=== PATIENT | male | born 1940 | race African-American/Black ===

== ENCOUNTER 2019-10-11 20:03 | Emergency (ER) | payer BC, OTHER ==
[~2019-10-11] VITALS: Ht 182.9 cm; Wt 86.2 kg
[~2019-10-11 20:03] MED LIST: AMLODIPINE BESYL5 MG ORAL; ASPIR-LOW81 MG ORAL; ASPIRIN-LOW81 MG ORAL; MAGNESIUM250 M2 PO; MECLIZINE HCL25 MG ORAL; NORVASC5 MG ORAL
[2019-10-11 20:45] VITALS: BP 168/98
--- NOTE | 2019-10-11 20:45 | NUR ---
ED Nurse Note: Patient walked in to ED c/o SOB and congestion x1 day. Noted with bilateral wheezes. No fever. Afebrile. VSS.
--- NOTE | 2019-10-11 21:11 | NUR ---
ED Nurse Note: Xray at bedside.
[2019-10-11] MEDS: Ipratropium 0.02% Inh Soln 2.5ml UD HHN SCH ×3 (21:30→21:38)
[2019-10-11] MEDS: Albuterol ud Inhalation HHN SCH ×3 (21:30→21:38)
--- NOTE | 2019-10-11 21:31 | NUR ---
ED Nurse Note: RT at bedside for breating tx.
[2019-10-11 21:35] LABS: BASOPHILS % (AUTO) 1.4 % (0.0-2.0); EOSINOPHILS % (AUTO) 7.3 % (0.0-3.0); HEMATOCRIT 42.6 % (42.0-52.0); HEMOGLOBIN 13.9 G/DL (14.2-18.0); LYMPHOCYTES % (AUTO) 31.7 % (20.0-45.0); MEAN CORPUSCULAR VOLUME 97 FL (80-99); MONOCYTES % (AUTO) 11.5 % (1.0-10.0); NEUTROPHILS % (AUTO) 48.2 % (45.0-75.0); PLATELET COUNT 104 K/UL (150-450); RED CELL DISTRIBUTION WIDTH 10.3 % (11.6-14.8); WHITE BLOOD COUNT 5.8 K/UL (4.8-10.8)
[2019-10-11 21:47] LABS: ANION GAP 6 mmol/L (5-15); BLOOD UREA NITROGEN 13 mg/dL (7-18); CALCIUM 8.2 MG/DL (8.5-10.1); CARBON DIOXIDE 30 MMOL/L (21-32); CHLORIDE 109 MMOL/L (98-107); CREATININE 1.4 MG/DL (0.55-1.30); POTASSIUM 4.3 MMOL/L (3.5-5.1); SODIUM 144 MMOL/L (136-145)
[2019-10-11 21:57] LABS: ALANINE AMINOTRANSFERASE 26 U/L (12-78); ALBUMIN 3.7 G/DL (3.4-5.0); ALBUMIN/GLOBULIN RATIO 0.9 (1.0-2.7); ALKALINE PHOSPHATASE 64 U/L (46-116); ASPARTATE AMINO TRANSFERASE 34 U/L (15-37); BILIRUBIN,TOTAL 0.7 MG/DL (0.2-1.0)
[2019-10-11] MEDS ORDERED: PREDNISONE50 MG ORAL (22:57)
[2019-10-11] MEDS ORDERED: ALBUTEROL SULF8.5 GM INH (22:57)
--- NOTE | 2019-10-11 22:57 | Emergency Room Report ---
History of Present Illness General Chief Complaint: Asthma Source: Patient Present Illness HPI 78-year-old male history of hypertension presents with shortness of breath of the past 5 days, patient versus cough, some congestion, no fevers no chills no chest pain, no known aggravating relieving factors severity is moderate, constant patient states he is not a smoker but he is surrounded by a lot of secondhand smoke his friend like to smoke a lot. Allergies: Coded Allergies: IODINE (Verified Allergy, Unknown, 04/23/11) Patient History Past Medical History: see triage record Reviewed Nursing Documentation: PMH: Agreed; PSxH: Agreed Nursing Documentation-PMH Past Medical History: No History, Except For Hx Cardiac Problems: Yes Hx Hypertension: Yes Hx Cancer: No Hx Gastrointestinal Problems: No Hx Neurological Problems: No Hx Transient Ischemic Attacks: Yes Hx Vertigo: Yes Hx Dizziness: Yes Hx Syncope: Yes Hx Headaches: Yes Hx Weakness: Yes Hx Fatigue: Yes Review of Systems All Other Systems: negative except mentioned in HPI Physical Exam Vital Signs Date Time Temp Pulse Resp B/P (MAP) Pulse Ox O2 Delivery O2 Flow Rate FiO2 10/11/19 20:39 98.2 74 14 168/98 (121) 94 Room Air 10/11/19 21:33 21 Sp02 EP Interpretation: reviewed, normal General Appearance: well appearing, no apparent distress, alert Head: normocephalic, atraumatic Eyes: bilateral eye PERRL, bilateral eye EOMI ENT: uvula midline, moist mucus membranes Neck: supple, thyroid normal, supple/symm/no masses Respiratory: no respiratory distress, no retraction, no accessory muscle use, wheezing - Moderate Cardiovascular #1: normal peripheral pulses, regular rate, rhythm, no edema, no gallop, no murmur Gastrointestinal: non tender, soft, no guarding, no rebound Musculoskeletal: normal inspection Neurologic: alert, oriented x3 Psychiatric: mood/affect normal Skin: no rash, warm/dry Medical Decision Making Diagnostic Impression: Primary Impression: COPD exacerbation ER Course 78-year-old male presents with shortness of breath, concerning for COPD exacerbation versus ACS versus cardiac wheeze Duo nebs, steroids, fluids and a chest x-ray Chest x-ray shows large lung volumes, EKG negative for acute infarct, troponin negative, patient improved significantly with duo nebs and steroids Counseled patient to avoid secondhand smoke Disposition home with return precautions Laboratory Tests Test 10/11/19 21:15 White Blood Count 5.8 K/UL (4.8-10.8) Red Blood Count 4.40 M/UL (4.70-6.10) L Hemoglobin 13.9 G/DL (14.2-18.0) L Hematocrit 42.6 % (42.0-52.0) Mean Corpuscular Volume 97 FL (80-99) Mean Corpuscular Hemoglobin 31.6 PG (27.0-31.0) H Mean Corpuscular Hemoglobin Concent 32.6 G/DL (32.0-36.0) Red Cell Distribution Width 10.3 % (11.6-14.8) L Platelet Count 104 K/UL (150-450) L Mean Platelet Volume 10.7 FL (6.5-10.1) H Neutrophils (%) (Auto) 48.2 % (45.0-75.0) Lymphocytes (%) (Auto) 31.7 % (20.0-45.0) Monocytes (%) (Auto) 11.5 % (1.0-10.0) H Eosinophils (%) (Auto) 7.3 % (0.0-3.0) H Basophils (%) (Auto) 1.4 % (0.0-2.0) Sodium Level 144 MMOL/L (136-145) Potassium Level 4.3 MMOL/L (3.5-5.1) Chloride Level 109 MMOL/L (98-107) H Carbon Dioxide Level 30 MMOL/L (21-32) Anion Gap 6 mmol/L (5-15) Blood Urea Nitrogen 13 mg/dL (7-18) Creatinine 1.4 MG/DL (0.55-1.30) H Estimate Glomerular Filtration Rate mL/min (>60) Glucose Level 105 MG/DL (74-106) Calcium Level 8.2 MG/DL (8.5-10.1) L Total Bilirubin 0.7 MG/DL (0.2-1.0) Aspartate Amino Transferase (AST) 34 U/L (15-37) Alanine Aminotransferase (ALT) 26 U/L (12-78) Alkaline Phosphatase 64 U/L (46-116) Troponin I 0.000 ng/mL (0.000-0.056) Pro-B-Type Natriuretic Peptide 251 pg/mL (0-125) H Total Protein 7.8 G/DL (6.4-8.2) Albumin 3.7 G/DL (3.4-5.0) Globulin 4.1 g/dL Albumin/Globulin Ratio 0.9 (1.0-2.7) L EKG Diagnostic Results EKG Time: 21:43 EP Interpretation: Sinus bradycardia, rate 58, QTc 428, no acute ST elevations , left axis tommie Rhythm Strip Diag. Results Rhythm Strip Time: 22:55 EP Interpretation: yes Rate: 63 Rhythm: NSR, no PVC's, no ectopy Chest X-Ray Diagnostic Results Chest X-Ray Diagnostic Results : Chest X-Ray Ordered: Yes # of Views/Limited/Complete: 1 View Indication: Shortness of Breath EP Interpretation: Yes Interpretation: other - Large lung volumes Impression: Other - Large lung volumes Electronically Signed by: William Ahuja MD Last Vital Signs Date Time Temp Pulse Resp B/P (MAP) Pulse Ox O2 Delivery O2 Flow Rate FiO2 10/11/19 21:38 62 16 100 Room Air 21 65 15 100 10/11/19 20:45 98.2 168/98 Disposition: HOME, SELF-CARE Condition: Stable Scripts Albuterol Sulfate* (ALBUTEROL SULFATE MDI*) 8.5 Gm Hfa.aer.ad 2 PUFF INH Q4H PRN for Shortness of Breath, #1 EA 0 Refills Prov: William Ahuja MD 10/11/19 Prednisone* (PREDNISONE*) 50 Mg Tablet 50 MG ORAL DAILY, #4 TAB 0 Refills Prov: William Ahuja MD 10/11/19 Referrals: [facility] Patient Instructions: Chronic Obstructive Pulmonary Disease Exacerbation, Easy- to-Read Additional Instructions: The patient was provided with discharge instructions, notified to follow-up with a primary care doctor and or specialist in the next 24-48 hours, and to return to the ED if they have worsening of their symptoms. Please note that this report is being documented using [employer] technology. This can lead to erroneous entry secondary to incorrect interpretation by the dictating instrument. William Ahuja MD Oct 11, 2019 22:57
[2019-10-11 23:06] VITALS: BP 168/98
--- NOTE | 2019-10-11 23:06 | NUR ---
ED Nurse Note: Pt cleared by ERMD for discharge. DC instructions/prescription was given and explained to pt and verbalized understanding of teachings. All medical deviecs such as ID band and IV line removed. Pt is AAO x4, ambulatory and left with all personal belongings.
--- NOTE | 2019-10-12 18:49 | Diagnostic Imaging Report ---
Indication: Shortness of breath Technique: One view of the chest Comparison: 12/21/2014 Findings: Lungs and pleural spaces are clear. Heart size is normal. No significant change Impression: No acute process
== END 2019-10-11 23:06 | disposition home or self-care (01) ==
LOC: EMR 23:00
DX: J44.1 Chronic obstructive pulmonary disease with (acute) exacerbation (principal); I10 Essential (primary) hypertension; Z86.73 Personal history of transient ischemic attack (TIA), and cerebral infarction without residual deficits; Z91.041 Radiographic dye allergy status; R00.1 Bradycardia, unspecified
CPT/HCPCS: 36415; 71045; 80053; 83880; 84484; 85025; 93005; 96360; 99284; J7030; J7512

== ENCOUNTER 2019-11-09 20:56 | Emergency (ER) | payer BC ==
[~2019-11-09] VITALS: Ht 182.9 cm; Wt 85.3 kg
[~2019-11-09 20:56] MED LIST changes: +ALBUTEROL SULF8.5 GM INH; +PREDNISONE50 MG ORAL
[2019-11-09 21:15] VITALS: BP 148/97
--- NOTE | 2019-11-09 21:15 | NUR ---
ED Nurse Note: PTIENT WALKED IN TO ER WITH COMPLAINTS OF CHEST TIGHTNESS, DIFFICULTY TO BREATH AND COUGH X 3 DAYS PATIENT REPORTS DISCOMFORT IN THE CHEST AT THIS TIME 05/16. pATIENT PRESENTED CALM, AAOX4, VSS AT THIS TIME.
--- NOTE | 2019-11-09 21:27 | Emergency Room Report ---
History of Present Illness General Chief Complaint: Chest Pain Source: Patient Present Illness HPI This is a 79-year-old male with a history of high blood pressure but not on any blood medication for years. Also a history of COPD. He presents with shortness of breath and chest pain. Onset for last 3 days. Worse with exertion. Better with rest. Has wheezing. He was here last month for the same thing. Was given albuterol and prednisone. He said that helped. He lost his inhaler. He is out of the prednisone. Denies any fever chills. Coughing is nonproductive nature. Chest pain is secondary to shortness of breath. [place] tightness. No fever chills. No nausea vomiting or diarrhea. No exertional component. No radiation. Pain is 5 out of 10. Allergies: Coded Allergies: IODINE (Verified Allergy, Unknown, 04/23/11) Patient History Past Medical History: see triage record, old chart reviewed, HTN, asthma, COPD Past Surgical History: none Pertinent Family History: none Social History: Denies: smoking Immunizations: other Reviewed Nursing Documentation: PMH: Agreed; PSxH: Agreed Nursing Documentation-PMH Hx Cardiac Problems: Yes Hx Hypertension: Yes - NO MEDS LIFESTYLE CHANGE Hx Asthma: Yes - CHILDHOOD Hx Cancer: No Hx Gastrointestinal Problems: No Hx Neurological Problems: No Hx Transient Ischemic Attacks: Yes Hx Vertigo: Yes Hx Dizziness: Yes Hx Syncope: Yes Hx Headaches: Yes Hx Weakness: Yes Hx Fatigue: Yes Review of Systems Eye: Denies: eye pain, blurred vision ENT: Denies: ear pain, nose congestion, throat swelling Respiratory: Reports: cough, shortness of breath Cardiovascular: Reports: chest pain; Denies: palpitations Gastrointestinal: Denies: abdominal pain, diarrhea, nausea, vomiting Musculoskeletal: Denies: back pain, joint pain Skin: Denies: rash Neurological: Denies: headache, numbness Endocrine: Denies: increased thirst, increased urine Hematologic/Lymphatic: Denies: easy bruising All Other Systems: negative except mentioned in HPI Physical Exam Vital Signs Date Time Temp Pulse Resp B/P (MAP) Pulse Ox O2 Delivery O2 Flow Rate FiO2 11/09/19 20:57 98.2 84 14 148/97 (114) 93 Room Air Vitals with high blood pressure Sp02 EP Interpretation: reviewed, normal General Appearance: well appearing, no apparent distress, alert Head: normocephalic, atraumatic Eyes: bilateral eye PERRL, bilateral eye EOMI ENT: hearing grossly normal, normal pharynx Neck: full range of motion, supple, no meningismus Respiratory: chest non-tender, decreased breath sounds, accessory muscle use, wheezing Cardiovascular #1: regular rate, rhythm, no murmur Gastrointestinal: normal bowel sounds, non tender, no mass, no organomegaly, no bruit, non-distended Musculoskeletal: back normal, normal range of motion, gait/station normal Psychiatric: mood/affect normal Medical Decision Making Diagnostic Impression: Primary Impression: Asthma exacerbation Qualified Codes: J45.21 - Mild intermittent asthma with (acute) exacerbation Additional Impression: Hypertension Qualified Codes: I10 - Essential (primary) hypertension ER Course Patient presents with asthma exacerbation. This is causing his chest pain. No evidence of ACS, PE, dissection to name a few. Patient said he felt back to normal after breathing treatment. EKG Diagnostic Results Rate: normal Rhythm: NSR ST Segments: other - incomplete RBBB Rhythm Strip Diag. Results EP Interpretation: yes Rate: 60 Rhythm: NSR, no PVC's, no ectopy Chest X-Ray Diagnostic Results Chest X-Ray Diagnostic Results : Chest X-Ray Ordered: Yes # of Views/Limited/Complete: 1 View Indication: Chest Pain EP Interpretation: Yes Interpretation: no consolidation, no effusion, no pneumothorax, no acute cardiopulmonary disease Impression: No acute disease Electronically Signed by: Oseas Shah MD Last Vital Signs Date Time Temp Pulse Resp B/P (MAP) Pulse Ox O2 Delivery O2 Flow Rate FiO2 11/09/19 20:57 98.2 84 14 148/97 (114) 93 Room Air Status: improved Disposition: HOME, SELF-CARE Condition: Stable Scripts Hydrochlorothiazide* (HYDROCHLOROTHIAZIDE*) 25 Mg Tablet 25 MG ORAL DAILY, #30 TAB Prov: Oseas Shah MD 11/09/19 Prednisone* (PREDNISONE*) 20 Mg Tablet 40 MG ORAL DAILY, #10 TAB Prov: Oseas Shah MD 11/09/19 Albuterol Sulfate* (ALBUTEROL SULFATE MDI*) 8.5 Gm Hfa.aer.ad 2 PUFF INH Q4H PRN for cough/wheezing, #1 EA 0 Refills Prov: Oseas Shah MD 11/09/19 Additional Instructions: Follow-up with your doctor in 7 days. Return if symptoms worsen. Oseas Shah MD Nov 09, 2019 21:27
[2019-11-09] MEDS ORDERED: Ipratropium 0.02% Inh Soln 2.5ml UD HHN ONE (21:30)
[2019-11-09] MEDS ORDERED: Albuterol ud Inhalation HHN ONE (21:30)
[2019-11-09 21:59] LABS: HEMATOCRIT 45.1 % (42.0-52.0); HEMOGLOBIN 13.4 G/DL (14.2-18.0); LYMPHOCYTES % (AUTO) 42.2 % (20.0-45.0); MEAN CORPUSCULAR VOLUME 104 FL (80-99); MONOCYTES % (AUTO) 12.1 % (1.0-10.0); NEUTROPHILS % (AUTO) 37.7 % (45.0-75.0); PLATELET COUNT 128 K/UL (150-450); RED BLOOD COUNT 4.35 M/UL (4.70-6.10)
[2019-11-09 22:06] LABS: ANION GAP 6 mmol/L (5-15); BLOOD UREA NITROGEN 17 mg/dL (7-18); CARBON DIOXIDE 31 MMOL/L (21-32); CHLORIDE 108 MMOL/L (98-107); CREATININE 1.5 MG/DL (0.55-1.30); SODIUM 145 MMOL/L (136-145)
[2019-11-09] MEDS ORDERED: ALBUTEROL SULF8.5 GM INH (23:24)
[2019-11-09] MEDS ORDERED: HYDROCHLOROTHIA25 MG ORAL (23:24)
[2019-11-09] MEDS ORDERED: PREDNISONE20 MG ORAL (23:24)
--- NOTE | 2019-11-09 23:55 | NUR ---
ER DISCHARGE NOTE: Patient is cleared to be discharged per ERMD, pt is aox4, on room air, with stable vital signs. pt was given dc and prescription instructions, pt was able to verbalize understanding, pt id band and iv site removed without complications. pt is able to ambulate with steady gait. pt took all belongings.
--- NOTE | 2019-11-10 11:25 | Diagnostic Imaging Report ---
Indication: Dyspnea Comparison: 10/11/2019 A single view chest radiograph was obtained. Findings: Cardiomediastinal appearance is within normal limits for age. The lungs are clear. Pulmonary vascularity is appropriate. The diaphragmatic contour is smooth and costophrenic angles are sharp. No pleural effusions are identified. Multilevel thoracic vertebral endplate osteophytes demonstrated. There is a deformity of the left distal clavicle which appears chronic. Impression: No acute findings
== END 2019-11-09 23:55 | disposition home or self-care (01) ==
LOC: EMR 21:40
DX: J45.21 Mild intermittent asthma with (acute) exacerbation (principal); R07.9 Chest pain, unspecified; I10 Essential (primary) hypertension; Z91.041 Radiographic dye allergy status; J44.9 Chronic obstructive pulmonary disease, unspecified
CPT/HCPCS: 36415; 71045; 80048; 84484; 85025; 93005; 99284; J7512

== ENCOUNTER 2020-12-22 06:43 | Emergency (ER) | payer BC ==
[~2020-12-22] VITALS: Ht 188 cm; Wt 81.6 kg
[~2020-12-22 06:43] MED LIST changes: +HYDROCHLOROTHIA25 MG ORAL; +PREDNISONE20 MG ORAL
--- NOTE | 2020-12-22 07:06 | Emergency Room Report ---
History of Present Illness General Chief Complaint: Upper Respiratory Illness Source: Patient Present Illness HPI Patient is an 80-year-old male brought in by private vehicle who presented for increased cough and difficulty with breathing. Reports having number reports having cough with clear sputum. Had coronavirus vaccine on Saturday. Patient had first dose of moderna vaccine. Patient denies any fever. Reports having some chest tightness. Patient denies any recent use of inhalers. Denies any leg pain or swelling. Denies any exertional component to shortness of breath. No vomiting or diarrhea. Allergies: Coded Allergies: IODINE (Verified Allergy, Unknown, 04/23/11) COVID-19 Screening Contact w/high risk pt: No Experienced COVID-19 symptoms?: No COVID-19 Testing performed DISCOTHEQUE DANCER: No Patient History Reviewed Nursing Documentation: PMH: Agreed; PSxH: Agreed Nursing Documentation-PMH Past Medical History: No Stated History Hx Cardiac Problems: Yes Hx Hypertension: Yes - NO MEDS LIFESTYLE CHANGE Hx Asthma: Yes - CHILDHOOD Hx Cancer: No Hx Gastrointestinal Problems: No Hx Neurological Problems: No Hx Transient Ischemic Attacks: Yes Hx Vertigo: Yes Hx Dizziness: Yes Hx Syncope: Yes Hx Headaches: Yes Hx Weakness: Yes Hx Fatigue: Yes Physical Exam Vital Signs Date Time Temp Pulse Resp B/P (MAP) Pulse Ox O2 Delivery O2 Flow Rate FiO2 12/22/20 06:59 98.1 78 16 160/100 (120) 98 Room Air Sp02 EP Interpretation: reviewed, normal General Appearance: normal inspection, well appearing, no apparent distress, alert, GCS 15 Head: atraumatic ENT: normal ENT inspection, hearing grossly normal, normal voice Neck: normal inspection, full range of motion, supple, no bony tend Respiratory: normal inspection, no retraction, wheezing Cardiovascular #1: regular rate, rhythm, no edema Gastrointestinal: normal inspection, normal bowel sounds, non tender, soft, no guarding, no hernia Genitourinary: no CVA tenderness Musculoskeletal: normal inspection, back normal, normal range of motion Neurologic: alert, tutoring manager III-XII nml as tested, oriented x3, responsive, speech normal, normal inspection Psychiatric: normal inspection, judgement/insight normal, mood/affect normal Medical Decision Making Diagnostic Impression: Primary Impression: Reactive airway disease ER Course Patient presents for increased difficulty with breathing. Differential diagnosis include was not limited to pneumonia, bronchitis, COPD among others. Because of complexity of patient's case laboratory tests and imaging studies were ordered.Patient is given breathing treatment with improvement his blood pressure. Laboratory testing showed negative troponin. EKG interpreted by me showed normal sinus rhythm with a rate of 76 with incomplete right bundle branch block and a pulmonary disease pattern. Patient's coronavirus testing antigen was negative. Patient did have one prior vaccine. He will be Given prescri ption for oral steroids as well as inhaler. He was advised to return if worse. This medical record is generated with [employer] pathology assistant software. There may be some pathology assistant discrepancies related to use of this software Labs Test 12/22/20 07:25 White Blood Count 5.3 K/UL (4.8-10.8) Red Blood Count 4.89 M/UL (4.70-6.10) Hemoglobin 14.6 G/DL (14.2-18.0) Hematocrit 49.0 % (42.0-52.0) Mean Corpuscular Volume 100 FL (80-99) Mean Corpuscular Hemoglobin 29.9 PG (27.0-31.0) Mean Corpuscular Hemoglobin Concent 29.8 G/DL (32.0-36.0) Red Cell Distribution Width 12.2 % (11.6-14.8) Platelet Count 133 K/UL (150-450) Mean Platelet Volume 12.4 FL (6.5-10.1) Neutrophils (%) (Auto) 47.7 % (45.0-75.0) Lymphocytes (%) (Auto) 31.4 % (20.0-45.0) Monocytes (%) (Auto) 10.7 % (1.0-10.0) Eosinophils (%) (Auto) 8.4 % (0.0-3.0) Basophils (%) (Auto) 1.8 % (0.0-2.0) Prothrombin Time 11.2 SEC (9.30-11.50) Prothromb Time International Ratio 1.0 (0.9-1.1) Activated Partial Thromboplast Time 26 SEC (23-33) Urine Color Pale yellow Urine Appearance Clear Urine pH 5 (4.5-8.0) Urine Specific [place] 1.020 (1.005-1.035) Urine Protein Negative (NEGATIVE) Urine Glucose (UA) Negative (NEGATIVE) Urine Ketones Negative (NEGATIVE) Urine Blood Negative (NEGATIVE) Urine Nitrite Negative (NEGATIVE) Urine Bilirubin Negative (NEGATIVE) Urine Urobilinogen Normal MG/DL (0.0-1.0) Urine Leukocyte Esterase Negative (NEGATIVE) Sodium Level 142 MMOL/L (136-145) Potassium Level 4.8 MMOL/L (3.5-5.1) Chloride Level 106 MMOL/L (98-107) Carbon Dioxide Level 30 MMOL/L (21-32) Anion Gap 6 mmol/L (5-15) Blood Urea Nitrogen 15 mg/dL (7-18) Creatinine 1.5 MG/DL (0.55-1.30) Estimat Glomerular Filtration Rate 54.5 mL/min (>60) Glucose Level 106 MG/DL (74-106) Lactic Acid Level 1.70 mmol/L (0.4-2.0) Calcium Level 9.1 MG/DL (8.5-10.1) Total Bilirubin 0.7 MG/DL (0.2-1.0) Aspartate Amino Transf (AST/SGOT) 31 U/L (15-37) Alanine Aminotransferase (ALT/SGPT) 24 U/L (12-78) Alkaline Phosphatase 74 U/L (46-116) Total Creatine Kinase 288 U/L (26-308) Creatine Kinase MB 2.6 NG/ML (0.0-3.6) Creatine Kinase MB Relative Index 0.9 Troponin I 0.000 ng/mL (0.000-0.056) Pro-B-Type Natriuretic Peptide 83 pg/mL (0-125) Total Protein 8.2 G/DL (6.4-8.2) Albumin 4.1 G/DL (3.4-5.0) Globulin 4.1 g/dL Albumin/Globulin Ratio 1.0 (1.0-2.7) Lipase 210 U/L (73-393) EKG Diagnostic Results Rate: normal, tachycardiac Rhythm: NSR ST Segments: no acute changes Last Vital Signs Date Time Temp Pulse Resp B/P (MAP) Pulse Ox O2 Delivery O2 Flow Rate FiO2 12/22/20 06:59 98.1 78 16 160/100 (120) 98 Room Air Status: improved Disposition: HOME, SELF-CARE Condition: Stable Scripts Albuterol Sulfate* (Albuterol Sulfate Hfa*) 8.5 Gm Hfa.aer.ad 2 PUFF INH Q6H, #1 INH Prov: Gibson Wharton MD 12/22/20 Prednisone* (PREDNISONE*) 20 Mg Tablet 40 MG ORAL DAILY, #10 TAB Prov: Gibson Wharton MD 12/22/20 Referrals: NOT CHOSEN IPA/,REFERRING (PCP) Gibson Wharton MD Dec 22, 2020 07:06
[2020-12-22] MEDS: Albuterol/Ipratropium 3ml neb HHN ONE (07:34)
[2020-12-22 07:35] VITALS: BP 151/68
--- NOTE | 2020-12-22 07:38 | NUR ---
pt arrived. states he was having a "head cold & chest tightness". pt denies pain at this time. pt denies pmh. pt placed on cardiac/O2 monitor. IV started. labs sent, urine sent. pt medicated by RT. EKG complete. pt A&Ox4.
[2020-12-22 07:52] LABS: APPEARANCE,URINE CLEAR; BASOPHILS % (AUTO) 1.8 % (0.0-2.0); BILIRUBIN, URINE NEGATIVE (NEGATIVE); COLOR,URINE PALE YELLOW; EOSINOPHILS % (AUTO) 8.4 % (0.0-3.0); GLUCOSE, URINE (UA) NEGATIVE (NEGATIVE); HEMOGLOBIN 14.6 G/DL (14.2-18.0); KETONES,URINE NEGATIVE (NEGATIVE); LEUKOCYTE ESTERASE ,URINE NEGATIVE (NEGATIVE); LYMPHOCYTES % (AUTO) 31.4 % (20.0-45.0); MEAN CORPUSCULAR VOLUME 100 FL (80-99); MONOCYTES % (AUTO) 10.7 % (1.0-10.0); NEUTROPHILS % (AUTO) 47.7 % (45.0-75.0); NITRITE,URINE NEGATIVE (NEGATIVE); PH,URINE 5 (4.5-8.0); PLATELET COUNT 133 K/UL (150-450); PROTEIN,URINE NEGATIVE (NEGATIVE); RED BLOOD COUNT 4.89 M/UL (4.70-6.10); RED CELL DISTRIBUTION WIDTH 12.2 % (11.6-14.8); UROBILINOGEN,URINE NORMAL MG/DL (0.0-1.0); WHITE BLOOD COUNT 5.3 K/UL (4.8-10.8)
[2020-12-22 08:02] LABS: CALCIUM 9.1 MG/DL (8.5-10.1); CREATININE 1.5 MG/DL (0.55-1.30); POTASSIUM 4.8 MMOL/L (3.5-5.1)
[2020-12-22 08:16] LABS: ALBUMIN 4.1 G/DL (3.4-5.0); BILIRUBIN,TOTAL 0.7 MG/DL (0.2-1.0); CKMB 2.6 NG/ML (0.0-3.6)
[2020-12-22] MEDS ORDERED: PREDNISONE20 MG ORAL (08:35)
[2020-12-22] MEDS ORDERED: ALBUTEROL SULF8.5 G1 INH (08:35)
[2020-12-22 08:51] VITALS: BP 127/74
--- NOTE | 2020-12-22 08:51 | NUR ---
ED Nurse Note: Pt cleared by health care Provider for discharge. DC instructions/prescription was given and explained to pt and verbalized understanding of teachings. All medical deviecs such as ID band removed. Pt is AAO x4, ambulatory and left with all personal belongings.
--- NOTE | 2020-12-22 18:01 | Diagnostic Imaging Report ---
Indication: Shortness of breath Technique: One view of the chest Comparison: 11/09/2019 Findings: Lungs and pleural spaces are clear. Heart size is normal. Right hemidiaphragm is elevated. No significant change Impression: No acute process
== END 2020-12-22 08:53 | disposition home or self-care (01) ==
LOC: EMR 07:04
DX: J45.909 Unspecified asthma, uncomplicated (principal); Z91.041 Radiographic dye allergy status
CPT/HCPCS: 36415; 71045; 80053; 81003; 82550; 82553; 83605; 83690; 83880; 84484; 85025; 85610; 85730; 93005; 99284; J7620